=== PATIENT | male | born 1995 | race Caucasian/White ===

== ENCOUNTER 2017-01-03 16:43 | Emergency (ER) | payer OTHER ==
[~2017-01-03] VITALS: Ht 188 cm; Wt 99.8 kg
--- NOTE | 2017-01-03 17:40 | ED GENERAL ADULT ---
History of Present Illness General Chief Complaint: General Adult Stated Complaint: ?REACTION TO PAIN PUMP, UNABLE TO TALK OR SWALLOW Source: patient Exam Limitations: no limitations Vital Signs & Intake/Output Vital Signs & Intake/Output Vital Signs Date Time Temp Pulse Resp B/P B/P Pulse O2 O2 Flow FiO2 Mean Ox Delivery Rate 01/03 1648 96.5 96 18 115/72 96 Room Air Allergies Coded Allergies: azithromycin (From ZITHROMAX) (Severe, HIVES 12/31/16) diphenhydramine (From BENADRYL) (Severe, ANAPHYLAXIS 12/31/16) meperidine (From DEMEROL) (Severe, PALPATATIONS / HALLUCINATIONS 12/31/16) prednisone (Severe, ANAPHYLAXIS 12/31/16) Cephalosporins (HEART PALPATATIONS 12/31/16) diazepam (From VALIUM) (NAUSEA / VOMITING 12/31/16) Triage Note: PT TO TRIAGE WITH HIS MOTHER, PT HAD L ARM SURGERY TODAY ASH PAIN BALL WAS PLACED(ROPIVACAINE) PT DISCHARGED AT 1330 AND WENT HOME AND FELL ASLEEP , WOKE 1 HOUR AGO WITH SWOLLEN NECK, SORE THROAT DIFFICULTY SPEAKING AND UNABLE TO SWALLOW HIS SALIVA. MOM CALLED AND WAS TOLD TO TURN PUMP OFF AND GO TO ER. O2 SAT 95 % ON RA. VOICE NOTED TO BE SCRATCHY. Triage Nurses Notes Reviewed? yes Onset: Gradual Duration: hour(s):, constant, continues in ED, getting worse HPI: Patient presents for evaluation of complications from a scalene nerve block in the OR today. He has been experiencing some difficulty swallowing and scratchy throat.pt has surgery this am. with dischaged about 1:30 this afternoon. was able to sleep for about one hour, then awoke with a feeling of a swollen throat and neck and a sore throat. his voice was scratchy and had difficulty swallowing , including his saliva. Past History Travel History Traveled to [place] past 21 day No Medical History Any Pertinent Medical History? 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 No Review of Systems Review of Systems Constitutional: Reports: no symptoms. EENTM: Reports: see HPI. Respiratory: Reports: no symptoms. Cardiovascular: Reports: no symptoms. GI: Reports: no symptoms. Genitourinary: Reports: no symptoms. Musculoskeletal: Reports: no symptoms. Skin: Reports: no symptoms. Neurological/Psychological: Reports: no symptoms. Hematologic/Endocrine: Reports: no symptoms. Immunologic/Allergic: Reports: no symptoms. All Other Systems: Reviewed and Negative Physical Exam Physical Exam General Appearance: SEE BELOW Comments: Gen.: Well-nourished, well-developed, no acute respiratory distress. Head: Normocephalic, atraumatic. Eyes: Normal inspection bilaterally Ears: Normal inspection bilaterally Nose: Normal inspection Throat/mouth : Moist mucosa, managing secretions well Neck: Supple, full range of motion, no goiter, no hematoma,no stridor Heart: Regular rate and rhythm, no murmurs rubs or gallops Lungs: Clear to auscultation bilaterally with normal air entry Chest: Nontender Back: Normal range of motion Abdomen: Soft, nontender, nondistended, normal bowel sounds Extremities: Normal range of motion grossly Neurologic: Cranial nerves grossly intact, speech is clear Skin: warm and dry Psychiatric: Calm, cooperative, no apparent delusions or hallucinations Core Measures ACS in differential dx? No CVA/TIA Diagnosis: No Severe Sepsis Present: No Septic Shock Present: No Progress Differential Diagnoses I considered the following diagnoses in my evaluation of the patient: Hematoma, nerve trauma, carotid trauma Plan of Care: see d/c instructions Initial ED EKG: none Comments: Patient evaluated by the anesthesiologist who placed the nerve block. She feels comfortable that the patient will come out of the nerve block and its associated secondary side effects uneventfully. pt appeared comfortable during ED stay. Departure Departure Disposition: HOME OR SELF CARE Condition: Stable Clinical Impression Primary Impression: Adv eff nerve-block anes Qualifiers: Encounter type: initial encounter Qualified Code: T41.3X5A - Adverse effect of local anesthetics, initial encounter Referrals: JUN MUELLER MD (PCP/Family) Additional Instructions: FOLLOW UP DISCUSSED DISCUSSED WITH ANESTHESIA. RETURN IF ANY CONCERNS OR WORSENING. Departure Forms: Customer Survey General Discharge Information Critical Care Note Critical Care Note Critical Care Time: non-applicable
[2017-01-03 19:12] VITALS: BP 112/68
== END 2017-01-03 19:13 ==
LOC: ERH 16:43
DX: T41.3X5A Adverse effect of local anesthetics, initial encounter (principal)

== ENCOUNTER → 2017-01-03 | Day surgery (SDC) | payer OTHER ==
[~2017-01-03] VITALS: Ht 188 cm; Wt 99.8 kg
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
--- NOTE | 2017-01-03 18:46 | PN- Anesthesiology ---
Subjective Subjective: Pepito is S/P R shoulder labral repair of this morning with Dr. Jackson. I placed an interscalene block at 0730 with 30cc of plain ropivacaine, 0.5% which provided very good analgesia. I discussed with the pt and his mother what to expect from the implanted cather and infusion pump prior to his discharge from [facility]. At 3:53 today I spoke with the pt's mother via phone due to her son's concerns: he felt his voice was weak, and he couldn't swallow water. He denied SOB, dysphagia, inability to handle his own secretions. I felt these symptoms were related to the block and instructed his mother to turn off the pump, which was infusing 0.2% ropivacaine at a rate of 8cc/hr. Additionally I asked her to call me back in 2 hrs time to let me know how he was feeling. I instructed her to bring Pepito to the ED if his symptoms worsened. At 5:23pm I learned that she had brought him to the ED. The pump had been off since approx. 4pm. In the ED his voice was soft, he did not appear to be in any distress, he had no SOB, there was evidence of a Horners on the R (which is very common with interscalene block). He felt his symptoms were actually improving but he was very anxious about the situation. I told Pepito and his mother that the initial injection of 0.5% would last 15- 18 hrs and as such his side effects would not resolve until approx the same time period, 22:30 - 01:30. We also talked about the fact that he would have no pain relief from the local anesthestic after that time as well. He requested that the pump and catheter be dc'd which I did. We discussed the dosing options of percocet and motrin. He will recieve 1L IV fluid, in case he is hesitant to eat and drink upon discharge. They will follow up with me if needed. Objective Vital Signs and I&Os as above Assessment/Plan Assessment/Plan as above
== END ==
LOC: STS 01:11
DX: S43.431A Superior glenoid labrum lesion of right shoulder, initial encounter (principal); V89.2XXA Person injured in unspecified motor-vehicle accident, traffic, initial encounter
CPT/HCPCS: J0131; J0171; J2250; J2795